=== PATIENT | female | born 1960 | race Caucasian/White ===

== ENCOUNTER → 2019-12-17 | Outpatient (CLI) | payer OTHER ==
[2019-12-17 15:55] LABS: ABSOLUTE NEUTROPHILS 3.2 thou/uL (1.4-8.2); BASOPHILS 0.5 % (0.0-2.0); EOSINOPHILS 0.8 % (0.0-3.0); HEMOGLOBIN 14.7 gm/dL (12.0-15.0); LYMPHOCYTES 24.1 % (24.0-44.0); MCH 32.1 pg (26.0-34.0); MCHC 34.2 g/dL (28.0-37.0); MONOCYTES 9.6 % (1.0-8.0); PLATELET COUNT 212 thou/uL (150-400); RBC 4.57 mil/uL (4.20-5.00); RDW 11.8 % (10.5-14.5); WBC 4.9 thou/uL (4.0-11.0)
[2019-12-17 16:11] LABS: ALBUMIN 4.6 g/dL (3.4-5.0); ANION GAP 10 mmol/L (7-16); BUN 14 mg/dL (7-18); CALCIUM 9.1 mg/dL (8.5-10.1); CHLORIDE 102 mmol/L (98-107); CHOLESTEROL 220 mg/dL (<200); CO2 26 mmol/L (21-32); GLUCOSE 87 mg/dL (74-106); HDL CHOLESTEROL 61 mg/dL (>40); LDL CHOLESTEROL 141 mg/dL (<100); POTASSIUM 4.3 mmol/L (3.5-5.1); SGOT 21 U/L (15-37); SGPT 25 U/L (30-65); SODIUM 138 mmol/L (136-145); TC:HDL 3.6 Ratio (Not establshd); TOTAL PROTEIN 7.5 g/dL (6.4-8.2); TRIGLYCERIDE 93 mg/dL (<150); VLDL 19 mg/dL (<40)
[2019-12-17 16:24] LABS: % SATURATION 41 % (20-39); IRON 123 ug/dL (50-170); TIBC 303 ug/dL (250-450)
[2019-12-17 16:57] LABS: TSH 0.83 uIU/mL (0.358-3.740)
[2019-12-18 03:06] LABS: GLYCOHEMOGLOBIN (HGB A1C) 5.4 % (4.8-5.6)
== END ==
LOC: LAB 14:36
PROVIDERS: ATTEND Internal Medicine
DX: E04.1 Nontoxic single thyroid nodule (principal); L65.9 Nonscarring hair loss, unspecified; Z00.00 Encounter for general adult medical examination without abnormal findings; N92.4 Excessive bleeding in the premenopausal period; R53.82 Chronic fatigue, unspecified; Z13.220 Encounter for screening for lipoid disorders